=== PATIENT | female | born 1960 | race American Indian/Alaskan Native ===

== ENCOUNTER 2018-01-03 09:45 | Emergency (ER) | payer MEDICAID ==
[~2018-01-03] VITALS: Ht 160 cm; Wt 101.0 kg
[2018-01-03] MEDS ORDERED: ipratropium/albuterol 3ml nebule NEB ONE ×2 (10:35→11:40)
[2018-01-03 10:55] LABS: BASOPHILS % (AUTO) 0.5 % (0-1); EOSINOPHILS # (AUTO) 0.2 X10'3 (0-0.9); EOSINOPHILS % (AUTO) 2.3 % (0-6); HEMATOCRIT 41.5 % (35.0-45.0); HEMOGLOBIN 14.4 g/dl (12.0-16.0); LYMPHOCYTES # (AUTO) 2.6 X10'3 (1.1-4.8); LYMPHOCYTES % (AUTO) 35.6 % (21-51); MEAN CORPUSCULAR HGB CONC 34.7 % (33.0-36.5); MEAN CORPUSCULAR VOLUME 89.4 FL (78-98); MEAN PLATELET VOLUME 8.5 FL (7.4-10.4); MONOCYTES # (AUTO) 0.5 X10'3 (0-0.9); MONOCYTES % (AUTO) 6.6 % (2-12); PLATELET COUNT 287 X10'3 (140-440); RED BLOOD COUNT 4.64 X10'6 (4.20-5.60); RED CELL DISTRIBUTION WIDTH 13.5 % (11.5-14.5); WHITE BLOOD COUNT 7.2 X10'3 (4.5-11.0)
[2018-01-03 11:08] LABS: ALANINE AMINOTRANSFERASE 20 U/L (12-78); ALBUMIN 2.9 G/DL (3.4-5.0); ALBUMIN/GLOBULIN RATIO 0.6 (1.1-1.5); ALKALINE PHOSPHATASE 159 IU/L (46-116); ANION GAP 8 (8-16); ASPARTATE AMINO TRANSFERASE 18 U/L (10-37); BILIRUBIN,TOTAL 0.4 MG/DL (0.1-1.0); BLOOD UREA NITROGEN 12 MG/DL (7-18); BUN/CREATININE RATIO 13.2 (6.6-38.0); CALCIUM 9.3 MG/DL (8.5-10.1); CHLORIDE 103 MMOL/L (99-107); CREATININE 0.91 MG/DL (0.40-0.90); POTASSIUM 4.4 MMOL/L (3.5-5.1); SODIUM 137 MMOL/L (135-145); TOTAL CARBON DIOXIDE 26.4 MMOL/L (24-32); TOTAL PROTEIN 7.9 G/DL (6.4-8.2); eGFR 63 ML/MIN
[2018-01-03 11:27] LABS: GLUCOSE 215 MG/DL (70-104)
[2018-01-03] MEDS ORDERED: HYDROcodone/acetaminophen 5mg/325mg tablet PO ONE (11:40)
[2018-01-03] MEDS ORDERED: ketorolac tromethamine 15mg/ml inj. IV ONE (11:40)
[2018-01-03] MEDS ORDERED: orphenadrine citrate 60mg/2ml inj. IM ONE (11:40)
[2018-01-03] MEDS ORDERED: ALBU18HF2 INH (12:58)
[2018-01-03] MEDS ORDERED: PRED50TA PO (12:58)
[2018-01-03 13:12] VITALS: BP 123/69
== END 2018-01-03 13:13 | disposition home or self-care (01) ==
LOC: ER 09:45
DX: S29.012A Strain of muscle and tendon of back wall of thorax, initial encounter (principal); S39.012A Strain of muscle, fascia and tendon of lower back, initial encounter; J45.901 Unspecified asthma with (acute) exacerbation; R07.89 Other chest pain; E11.42 Type 2 diabetes mellitus with diabetic polyneuropathy; I10 Essential (primary) hypertension; G89.29 Other chronic pain; F17.200 Nicotine dependence, unspecified, uncomplicated; F15.90 Other stimulant use, unspecified, uncomplicated; Z59.0 Homelessness; Z98.890 Other specified postprocedural states; Z79.899 Other long term (current) drug therapy; X50.1XXA Overexertion from prolonged static or awkward postures, initial encounter; Y93.89 Activity, other specified; Y92.89 Other specified places as the place of occurrence of the external cause; Y99.9 Unspecified external cause status
CPT/HCPCS: 36415; 71045; 80053; 84484; 85025; 93005; 94640; 94760; 96372; 96374; 99285; J1885; J2360; J7030

== ENCOUNTER 2018-01-09 06:46 | Emergency (ER) | payer MEDICAID ==
[~2018-01-09] VITALS: Ht 165.1 cm; Wt 100.9 kg
[~2018-01-09 06:46] MED LIST: ALBU18HF2 INH; PRED50TA PO
[2018-01-09] MEDS ORDERED: PRED5TAB PO (07:10)
[2018-01-09] MEDS ORDERED: ipratropium/albuterol 3ml nebule NEB ONE (07:10)
[2018-01-09] MEDS ORDERED: dexamethasone 4mg tablet PO ONE (07:10)
[2018-01-09] MEDS ORDERED: ALB0.5UD IH (07:10)
[2018-01-09] MEDS ORDERED: DOXY100C43 PO (07:10)
[2018-01-09] MEDS ORDERED: ALBU8HFA PO (07:11)
[2018-01-09] MEDS ORDERED: acetaminophen 325mg tablet PO ONE (08:00)
[2018-01-09 08:21] VITALS: BP 118/62
== END 2018-01-09 08:30 | disposition home or self-care (01) ==
LOC: ER 06:46
DX: J20.9 Acute bronchitis, unspecified (principal); F17.210 Nicotine dependence, cigarettes, uncomplicated; E11.42 Type 2 diabetes mellitus with diabetic polyneuropathy; I10 Essential (primary) hypertension; J45.909 Unspecified asthma, uncomplicated; G89.29 Other chronic pain; F15.90 Other stimulant use, unspecified, uncomplicated; Z59.0 Homelessness; Z98.890 Other specified postprocedural states; Z79.899 Other long term (current) drug therapy
CPT/HCPCS: 93005; 94640; 94760; 99284; 99406; J8540